=== PATIENT | male | born 1940 | race Caucasian/White ===

== ENCOUNTER 2018-07-21 18:25 | Emergency (ER) | payer MEDICARE ==
[~2018-07-21] VITALS: Ht 175.3 cm; Wt 84.9 kg
[2018-07-21] MEDS ORDERED: SODIUM CHLORIDE FLUSH 10ML SYR IVF ONE (19:00)
[2018-07-21 19:10] LABS: BASOPHILS # (AUTO) 0.02 x10^3/uL (0-0.1); BASOPHILS % (AUTO) 0 % (0-1); EOSINOPHILS # (AUTO) 0.11 x10^3/uL (0-0.4); EOSINOPHILS % (AUTO) 2 % (1-7); LYMPHOCYTES # (AUTO) 1.56 x10^3/uL (1-3.4); LYMPHOCYTES % (AUTO) 23 % (22-44); MD NO; MEAN CORPUSCULAR HEMOGLOBIN 28.2 pg (27.5-34.5); MEAN CORPUSCULAR HGB CONC 32.4 g/dL (33.2-36.2); MEAN CORPUSCULAR VOLUME 86.9 fL (81-97); MEAN PLATELET VOLUME 8.8 fL (7.4-10.4); MONOCYTES # (AUTO) 0.73 x10^3/uL (0.2-0.8); MONOCYTES % (AUTO) 11 % (2-9); NEUTROPHILS # (AUTO) 4.43 x10^3/uL (1.8-6.8); NEUTROPHILS % (AUTO) 65 % (42-75); PLATELET COUNT 261 x10^3/uL (130-400); RED BLOOD COUNT 5.18 x10^6/uL (4.38-5.82); RED CELL DISTRIBUTION WIDTH 16.7 % (9.4-14.8)
[2018-07-21 19:18] LABS: INTERNATIONAL NORMALIZED RATIO 1.22 (0.93-1.1); PROTHROMBIN TIME 12.5 Seconds (9.6-11.5)
[2018-07-21 19:19] LABS: ANION GAP 6 mmol/L (5-15); CALCIUM 8.9 mg/dL (8.5-10.1); CHLORIDE 106 mmol/L (98-107)
[2018-07-21 19:26] LABS: ALANINE AMINOTRANSFERASE 24 U/L (12-78); ALKALINE PHOSPHATASE 82 U/L (45-117); BILIRUBIN,TOTAL 0.3 mg/dL (0.2-1.0); CREATININE 1.04 mg/dL (0.7-1.3); TOTAL PROTEIN 7.9 g/dL (6.4-8.2); TROPONIN I < 0.015 ng/mL (0.000-0.045)
[2018-07-21] MEDS ORDERED: OMNIPAQUE 350 MG/ML, 100ML BOTTLE ONE (20:54)
[2018-07-21 21:08] VITALS: BP 134/68
== END 2018-07-21 21:36 | disposition home or self-care (01) ==
LOC: ED 20:00
DX: R06.00 Dyspnea, unspecified (principal); I48.91 Unspecified atrial fibrillation; E78.00 Pure hypercholesterolemia, unspecified; I10 Essential (primary) hypertension; Z88.8 Allergy status to other drugs, medicaments and biological substances
CPT/HCPCS: 36415; 71045; 71275; 80053; 83880; 84484; 85025; 85610; 85730; 93005; 99285; Q9967

== ENCOUNTER 2021-05-22 13:11 | Emergency (ER) | payer MEDICARE, BC ==
[~2021-05-22] VITALS: Ht 175.3 cm; Wt 81.7 kg
[2021-05-22] MEDS ORDERED: ASPIRIN 81 MG TABLET CHEW PO ONE (13:30)
[2021-05-22] MEDS ORDERED: ASPIRIN 81 MG TABLET CHEW ONE (13:36)
--- NOTE | 2021-05-22 13:40 | NUR ---
pt presents to ed with intermittent cp for 3-4 days and dizziness starting this morning. pt denies SOB, neuro intact, all monitors attached, nsr. pt a&o, resps even and unlabored, vss, nadn. virgen Hernandez at bedside for initial eval.
--- NOTE | 2021-05-22 13:51 | NUR ---
pt does not want ASA at this time, states he took 81 mg this morning and does not want to take anymore. states CP 0.5/10 at this time.
[2021-05-22 14:15] LABS: BASOPHILS % (AUTO) 1 % (0-1); EOSINOPHILS % (AUTO) 3 % (1-7); LYMPHOCYTES % (AUTO) 15 % (22-44); MEAN CORPUSCULAR HEMOGLOBIN 30.7 pg (27.5-34.5); MEAN PLATELET VOLUME 8.3 fL (7.4-10.4); MONOCYTES % (AUTO) 12 % (2-9); NEUTROPHILS % (AUTO) 69 % (42-75); PLATELET COUNT 220 x10^3/uL (130-400); RED BLOOD COUNT 4.95 x10^6/uL (4.38-5.82); RED CELL DISTRIBUTION WIDTH 14.2 % (9.4-14.8)
--- NOTE | 2021-05-22 14:17 | NUR ---
pt sitting up in bed, a&o, resps even and unlabored, vss, nadn. labs pending at this time.
[2021-05-22 14:18] VITALS: BP 131/77
--- NOTE | 2021-05-22 14:19 | NUR ---
[facility] at bedside for eval
[2021-05-22 14:27] LABS: ALBUMIN 3.6 g/dL (3.4-5.0); ANION GAP 6 mmol/L (5-15); CALCIUM 8.7 mg/dL (8.5-10.1); CHLORIDE 105 mmol/L (98-107)
[2021-05-22 14:34] LABS: ALKALINE PHOSPHATASE 80 U/L (45-117); BILIRUBIN,TOTAL 0.5 mg/dL (0.2-1.0); CREATININE 0.89 mg/dL (0.7-1.3); TOTAL PROTEIN 7.5 g/dL (6.4-8.2); TROPONIN I < 0.015 ng/mL (0.000-0.045)
[2021-05-22 14:35] LABS: ALANINE AMINOTRANSFERASE 23 U/L (12-78)
--- NOTE | 2021-05-22 14:42 | NUR ---
PT AMBULATORY TO DISCHARGE DESK WITH STEADY GAIT
--- NOTE | 2021-05-22 15:07 | NUR ---
PT EDUCTAED ON DISCHARGRE INSTRUCTIONS AND RETURN CRITERIA, VERBALIZED UNDERSTANDING, AMBULATORY TO DC DESK WITH STEADY GAIT ACCOMPANIED BY .
== END 2021-05-22 15:17 | disposition home or self-care (01) ==
LOC: ED 14:40
DX: R07.2 Precordial pain (principal); R42 Dizziness and giddiness; I10 Essential (primary) hypertension; E78.5 Hyperlipidemia, unspecified; E78.00 Pure hypercholesterolemia, unspecified; I48.91 Unspecified atrial fibrillation; Z86.73 Personal history of transient ischemic attack (TIA), and cerebral infarction without residual deficits
CPT/HCPCS: 36415; 71045; 80053; 83735; 84484; 85025; 93005; 99285